=== PATIENT | female | born 2000 | race Two or more races ===

== ENCOUNTER 2020-08-26 04:32 | Outpatient (CLI) | payer OTHER ==
[2020-08-26] MEDS ORDERED: ADULT LOW DOSE81 M1 PO (05:01)
== END 2020-08-26 09:55 | disposition home or self-care (01) ==
LOC: OBS/DEL 04:32
PROVIDERS: ATTEND Obstetrics & Gynecology
DX: O23.32 Infections of other parts of urinary tract in pregnancy, second trimester (principal); O99.012 Anemia complicating pregnancy, second trimester; D64.89 Other specified anemias; O26.892 Other specified pregnancy related conditions, second trimester; K21.9 Gastro-esophageal reflux disease without esophagitis

== ENCOUNTER 2020-11-12 17:46 | Outpatient (CLI) | payer OTHER ==
[~2020-11-12 17:46] MED LIST: ADULT LOW DOSE81 M1 PO
[2020-11-12] MEDS ORDERED: PRENATAL TABLE1 EAC1 PO (18:16)
== END 2020-11-13 13:29 | disposition home or self-care (01) ==
LOC: OBS/DEL 17:46
PROVIDERS: ATTEND Obstetrics & Gynecology
DX: O26.893 Other specified pregnancy related conditions, third trimester (principal); R10.2 Pelvic and perineal pain

== ENCOUNTER 2020-11-27 12:15 | Inpatient (IN) | payer OTHER ==
[~2020-11-27] VITALS: Ht 157.5 cm; Wt 86.6 kg
[~2020-11-27 12:15] MED LIST changes: +PRENATAL TABLE1 EAC1 PO
[2020-12-13] MEDS ORDERED: IRON236 MG PO (05:10)
[2020-12-13] MEDS ORDERED: AMPICILLIN SOD500 MG PO (05:11)
== END 2020-12-15 15:48 | disposition home or self-care (01) | DRG 807 ==
LOC: LDR 12-11 12:15 → OB/GYN 12-13 04:48
PROVIDERS: ADMIT Obstetrics & Gynecology; ATTEND Obstetrics & Gynecology
PROC: 10E0XZZ Delivery of Products of Conception, External Approach (ICD-10-PCS; principal; 2020-12-13)
PROC: 4A1HXFZ Monitoring of Products of Conception, Cardiac Rhythm, External Approach (ICD-10-PCS; 2020-12-13)
DX: O90.81 Anemia of the puerperium (principal); Z37.0 Single live birth; D64.9 Anemia, unspecified; Z3A.40 40 weeks gestation of pregnancy; Z20.822 Contact with and (suspected) exposure to COVID-19